=== PATIENT | male | born 1965 | race Caucasian/White ===

== ENCOUNTER 2018-11-17 01:49 | Emergency (ER) | payer OTHER ==
[~2018-11-17] VITALS: Ht 165.1 cm; Wt 80.0 kg
[2018-11-17 02:02] VITALS: Ht 165.1 cm; Wt 80.0 kg
--- NOTE | 2018-11-17 06:32 | ERD ---
ER Documentation Chief Complaint Chief Complaint bib ra from home for etoh, agressive, HPI This is a 53-year-old male with a past medical history of alcohol abuse who is presenting for aggressive and agitated behavior while at home. Neighbors reportedly called the police when they heard a lot of noise coming from the patient's home. According to the patient's girlfriend, the patient was drinking heavily this evening. She has never seen him like this in the past. Typically, he drinks 2-3 beers a day, but he drank much more today. When the line appliance assembler arrived, he was aggressive, agitated and belligerent. He was reportedly spitting. At that time, the police called an ambulance for alcohol intoxication. There was no trauma or injury witnessed on the scene. The patient currently does not want to speak to me. History and physical is limited secondary to clinical condition. ROS Unable to obtain secondary to clinical condition Medications Home Meds No Active Prescriptions or Reported Meds Allergies Allergies: Coded Allergies: No Known Allergy (Unverified , 11/17/18) PMhx/Soc Limited secondary to clinical condition. Medical and Surgical Hx: Unable to obtain Hx Alcohol Use: Yes Hx Substance Use: No Hx Tobacco Use: No Smoking Status: Unknown if ever smoked FmHx Unable to obtain secondary to clinical condition. Physical Exam Vitals Vital Signs Date Temp Pulse Resp B/P (MAP) Pulse Ox O2 O2 Flow FiO2 Time Delivery Rate 11/17/18 99 20 130/86 97 Room Air 03:11 (101) 11/17/18 98.9 89 19 126/65 100 02:02 (85) Physical Exam Const: No acute distress Head: Atraumatic Eyes: Normal Conjunctiva ENT: Normal External Ears, Nose and Mouth. Neck: Full range of motion. No meningismus. Resp: Clear to auscultation bilaterally Cardio: Regular rate and rhythm, no murmurs Abd: Soft, non tender, non distended. Normal bowel sounds Skin: No petechiae or rashes Back: No midline or flank tenderness Ext: No cyanosis, or edema Neur: Awake and alert Psych: Aggressive, agitated, belligerent Procedures/MDM MDM The patient presents for alcohol intoxication. There is no evidence of trauma or injury. There is no reported trauma or injury witnessed on the scene. The police and paramedics were called simply due to the patient's belligerence and aggressive behavior related to his alcohol abuse this evening. I do not feel the patient requires any further work-up. That said, the patient does require observation until clinical sobriety. TREATMENT/DISPOSITION The patient does not require emergent treatment. INITIAL RESTRAINT NOTE Time of evaluation: 2:00AM This patient was placed in Seclusion/Restraint due to danger to self and/or danger to others. Less restrictive measures of verbal interventions/reminders, security standby, medications offered/given, nursing interventions based on Face to Face assessment findings, alteration to physical environment/reduce stimuli were attempted prior to restraint and/or seclusion. I performed a face to face assessment within one hour of the restraint/seclusion Criteria for Removal of Restraints: Resolution of the conditions/behavior which prompted restraint or response to less restrictive measures. The patient's physical restraints were successfully removed. OBSERVATION NOTE Time: 4 hours Family Hx: No Hypertension Evaluation: Multiple exams showed improving symptoms and no evidence of decompensation DISCHARGE Upon reevaluation of the patient, symptoms have improved. No emergent diagnoses were identified. The patient is not suicidal or homicidal. He denies auditory or visual hallucinations. I do not suspect acute psychosis. I do not believe the patient is a danger to himself or others. At this time, I feel that the patient stable for discharge. The patient was instructed to follow-up with a primary care physician in 1-3 days. The patient will be given strict precautions with which to return to the emergency department. Prescriptions: None The patient's blood pressure was elevated at greater than 120/80 while in the emergency department. The patient was otherwise stable with no evidence of hypertensive urgency or emergency. The patient does not require admission for blood pressure control. I have discussed with the patient the risks of hypertension. I have instructed the patient to return to the ER for any new or worsening symptoms including chest pain, shortness of breath, headache, blurred vision, confusion, nausea, vomiting or LOC. I have advised the patient to follow up with the primary care physician for outpatient monitoring and treatment for hypertension in 1-3 days. Disclaimer: Inadvertent spelling and grammatical errors are likely due to EHR/dictation software use and do not reflect on the overall quality of patient care. Note that the electronic time recorded on this note does not necessarily reflect the actual time of the patient encounter. Departure Diagnosis: Primary Impression: Alcoholic intoxication Complication of substance-induced condition: uncomplicated Qualified Codes: F10.920 - Alcohol use, unspecified with intoxication, uncomplicated Condition: Stable Patient Instructions: Alcohol Intoxication Additional Instructions: Thank you for for coming to [facility] for your care today. Please ask your nurse or provider if you have questions about your care today and do not leave until all your questions have been answered. Please use any medications given as directed and follow-up with your doctor (or the doctor you were referred to) in the next 1-3 days. If you do not have a primary care doctor you [place] [facility] [place] [facility] (listed below). You may also use motrin and tylenol as needed for fever and/or pain unless instructed otherwise by your provider or nurse. Indications for more urgent follow-up have been discussed, but you may return to the Emergency Department at ANY time for any worrisome or worsening symptoms. If you have abdominal pain, please know that no test or exam you received is perfect and you should follow up within 8 hours for continued pain. If you had any imaging studies today, such as an X-Ray or CT Scan, these studies will be reviewed later by a radiologist. You will be called if there are important findings that were not identified today, so make sure the contact information you provided at registration is correct. If you received any narcotic pain control medicine today, such as Vicodin, Morphine or Dilaudid, your coordination and judgment may be affected for a number of hours. Please do not drive or operate heavy machinery, and you may want someone to assist you at home. If you were given a prescription for narcotic medication, be aware that it is very addictive- use sparingly and only if necessary. PLEASE SEEK FURTHER EVALUATION AND MANAGEMENT AT YOUR DOCTORS OFFICE WITHIN THE NEXT 1-3 DAYS. IT IS YOUR RESPONSIBILITY TO MAKE AN APPOINTMENT FOR FOLOW-UP CARE. IF YOU HAVE A PRIMARY DOCTOR, PLEASE CALL THEIR OFFICE TO SCHEDULE AN APPOINTMENT FOR FOLLOW UP. IF YOU DO NOT HAVE A PRIMARY DOCTOR YOU CAN CALL OUR PHYSICIAN REFERRAL HOTLINE AT IF YOU CAN NOT AFFORD TO SEE A PHYSICIAN YOU CAN CHOSE FROM THE FOLLOWING [facility] CLINICS: [facility] [id number] [facility]. [facility] [address] [facility] [address] [facility] [address] [facility] [address] [facility] [facility]. [address] MAHOGANY CHENG MD Nov 17, 2018 06:31
[2018-11-17 07:36] VITALS: BP 124/79; PULSE 87; RESP 17
== END 2018-11-17 07:37 | disposition home or self-care (01) ==
LOC: E/R 01:49
DX: F10.920 Alcohol use, unspecified with intoxication, uncomplicated (principal); R40.2142 Coma scale, eyes open, spontaneous, at arrival to emergency department; R40.2362 Coma scale, best motor response, obeys commands, at arrival to emergency department; R40.2222 Coma scale, best verbal response, incomprehensible words, at arrival to emergency department
CPT/HCPCS: 99283